=== PATIENT | male | born 1955 | race Caucasian/White ===

== ENCOUNTER 2024-03-13 21:25 | Emergency (ER) | payer MEDICARE, BC ==
[~2024-03-13] VITALS: Ht 170.2 cm; Wt 64.0 kg
[2024-03-13 21:54] VITALS: TEMP 98.1
[2024-03-13] MEDS ORDERED: ACETAMINOPHEN ES 500 MG TABLET ONE (22:57)
[2024-03-13] MEDS ORDERED: IBUPROFEN 600 MG TABLET ONE (22:57)
[2024-03-13] MEDS: ACETAMINOPHEN ES 500 MG TABLET PO ONE (23:04)
[2024-03-13] MEDS: IBUPROFEN 600 MG TABLET PO ONE (23:04)
[2024-03-13] MEDS ORDERED: IBUP-1955 PO (23:14)
[2024-03-13] MEDS ORDERED: ACET-2605 PO (23:14)
[2024-03-13 23:30] VITALS: BP 146/78; O2SAT 99
== END 2024-03-13 23:30 | disposition home or self-care (01) ==
LOC: ER 21:33
DX: H57.12 Ocular pain, left eye (principal); E11.9 Type 2 diabetes mellitus without complications
CPT/HCPCS: A4649